=== PATIENT | male | born 1970 | race Caucasian/White ===

== ENCOUNTER 2018-06-24 12:50 | Emergency (ER) | payer MEDICAID, OTHER ==
[~2018-06-24] VITALS: Ht 162.6 cm; Wt 75.0 kg
[2018-06-24 13:36] VITALS: BP 120/66
[2018-06-24] MEDS ORDERED: SIMV-259 PO (13:41)
[2018-06-24] MEDS ORDERED: LISI-660 PO (13:41)
[2018-06-24] MEDS ORDERED: METF-960 PO (13:41)
[2018-06-24 13:44] LABS: GLUCOSE,POINT OF CARE 147 MG/DL (70-110)
[2018-06-24] MEDS ORDERED: CeFAZolin 1 GM/DEXTROSE 50 ML IV ONE (14:15)
[2018-06-24] MEDS ORDERED: ACETAMINOPHEN/CODEINE 300-30 MG TABLET PO ONE (14:15)
[2018-06-24] MEDS ORDERED: MetroNIDAZOLE 250 MG TABLET PO ONE (14:15)
[2018-06-24 14:26] LABS: BASOPHILS % (AUTO) 0.6 % (0.0-2.0); EOSINOPHILS % (AUTO) 1.9 % (1.0-6.0); HEMATOCRIT 41.6 % (41-53); HEMOGLOBIN 14.3 g/dL (13.5-17.5); LYMPHOCYTES # (AUTO) 2.3 K/uL (1.0-4.8); LYMPHOCYTES % (AUTO) 30.7 % (22.0-44.0); MEAN CORPUSCULAR HEMOGLOBIN 30.5 pg (26.0-34.0); MEAN CORPUSCULAR HGB CONC 34.3 G/dL (31.0-37.0); MEAN CORPUSCULAR VOLUME 89 fL (80-100); MONOCYTES # (AUTO) 0.5 K/uL (0.1-1.0); NEUTROPHILS # (AUTO) 4.6 K/uL (1.8-7.7); NEUTROPHILS % (AUTO) 60.8 % (40.0-70.0); PLATELET COUNT (AUTO) 230 K/uL (150-450); RED BLOOD CELL COUNT(AUTO) 4.67 MIL/uL (4.50-5.90); RED CELL DISTRIBUTION WIDTH 13.5 % (11.5-14.5)
[2018-06-24 14:48] LABS: ANION GAP 11 mmol/L (8-16); CALCIUM, TOTAL 9.3 mg/dL (8.8-10.5); CARBON DIOXIDE 24 mmol/L (22-29); CHLORIDE 102 mmol/L (98-107); CREATININE 0.58 mg/dL (0.60-1.30); GLOMERULAR FILTR. RATE CALC > 60 mL/min (>60); GLUCOSE,RANDOM 134 mg/dL (70-110); POTASSIUM 3.9 mmol/L (3.5-5.1); SODIUM SERUM 137 mmol/L (136-145); UREA NITROGEN, BLOOD 12 mg/dL (7-18)
[2018-06-24 14:54] LABS: ALANINE AMINOTRANSFERASE 66 U/L (12-78); ALKALINE PHOSPHATASE 60 U/L (46-116); ASPARTATE AMINOTRANSFERASE 39 U/L (15-37); BILIRUBIN,TOTAL 0.5 mg/dL (0.1-1.0); TOTAL PROTEIN, SERUM 7.2 g/dL (6.4-8.2)
== END 2018-06-24 15:06 | disposition home or self-care (01) ==
LOC: EMS 12:55
DX: K04.7 Periapical abscess without sinus (principal); I10 Essential (primary) hypertension; E11.9 Type 2 diabetes mellitus without complications; Z79.84 Long term (current) use of oral hypoglycemic drugs
CPT/HCPCS: 36415; 80053; 82962; 85025; 96365; 99283; J0690

== ENCOUNTER 2025-01-13 15:05 | Emergency (ER) | payer OTHER ==
[~2025-01-13] VITALS: Ht 162.6 cm; Wt 75.5 kg
[~2025-01-13 15:05] MED LIST: LISI-892 PO; SIMV-259 PO
[2025-01-13 15:12] VITALS: BP 127/89; PULSE 69; RESP 18; TEMP 97.5; O2SAT 98
[2025-01-13] MEDS: IBUPROFEN 600 MG TABLET PO ONE (18:01)
[2025-01-13] MEDS: ACETAMINOPHEN 500 MG TABLET PO ONE (18:01)
== END 2025-01-13 20:15 | disposition home or self-care (01) ==
LOC: EMS 15:05
DX: S50.01XA Contusion of right elbow, initial encounter (principal); M08.0 Unspecified juvenile rheumatoid arthritis; E11.9 Type 2 diabetes mellitus without complications; I10 Essential (primary) hypertension; Z96.653 Presence of artificial knee joint, bilateral; W19.XXXA Unspecified fall, initial encounter; Y93.01 Activity, walking, marching and hiking; Y92.89 Other specified places as the place of occurrence of the external cause; Y99.8 Other external cause status
CPT/HCPCS: 73200; 82962; 99284